=== PATIENT | female | born 1990 | race Caucasian/White ===

== ENCOUNTER 2016-08-07 21:58 | Emergency (ER) | payer MEDICAID ==
[~2016-08-07] VITALS: Ht 157.5 cm; Wt 86.2 kg
[2016-08-07 22:18] VITALS: BP 119/58
--- NOTE | 2016-08-08 00:34 | NUR ---
Patient to OF.
--- NOTE | 2016-08-08 00:45 | NUR ---
Dr. Kelly evaluating patient.
--- NOTE | 2016-08-08 01:01 | NUR ---
26Y F PRESENT TO ER C/O OF RASH TO FOREHEAD AND SCALP. STARTED LAST SATURDAY. PT STATES IT CAUSES BURN AND PAIN SENSATION BUT DENIES IT AT THIS POINT.
[2016-08-08 01:10] VITALS: BP 129/75
--- NOTE | 2016-08-08 01:10 | NUR ---
Patient discharged with v/s stable. Written and verbal after care instructions given and explained. Patient alert, oriented and verbalized understanding of instructions. Ambulatory with steady gait. All questions addressed prior to discharge. ID band removed. Patient advised to follow up with PMD. Rx of HYDROCORTISONE CREAM given. Patient educated on indication of medication including possible reaction and side effects. Opportunity to ask questions provided and answered.
== END 2016-08-08 01:10 | disposition home or self-care (01) ==
LOC: MED 22:01
DX: T78.49XA Other allergy, initial encounter (principal); W57.XXXA Bitten or stung by nonvenomous insect and other nonvenomous arthropods, initial encounter
CPT/HCPCS: 99283